=== PATIENT | male | born 1990 | race Caucasian/White ===

== ENCOUNTER 2016-11-06 20:14 | Emergency (ER) | payer SELFPAY ==
[~2016-11-06] VITALS: Ht 182.9 cm; Wt 170.0 kg
[2016-11-06 20:19] VITALS: BP 113/43; PULSE 101; RESP 16; O2SAT 97
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
[2016-11-06] MEDS ORDERED: TdaP Vaccine 0.5 mL Inj IM ONE (21:15)
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
[2016-11-06] MEDS ORDERED: IBUP400T22 PO (21:43)
== END 2016-11-06 22:14 | disposition home or self-care (01) ==
LOC: SED 20:14
DX: S63.91XA Sprain of unspecified part of right wrist and hand, initial encounter (principal); S16.1XXA Strain of muscle, fascia and tendon at neck level, initial encounter; V86.59XA Driver of other special all-terrain or other off-road motor vehicle injured in nontraffic accident, initial encounter; Y93.89 Activity, other specified; Y92.009 Unspecified place in unspecified non-institutional (private) residence as the place of occurrence of the external cause; Y99.8 Other external cause status; Z23 Encounter for immunization